=== PATIENT | female | born 1995 | race Hispanic/Latino ===

== ENCOUNTER 2018-02-22 17:49 | Emergency (ER) | payer MEDICAID, OTHER ==
[2018-02-22 18:22] VITALS: BMI 40.9
[2018-02-22 18:55] LABS: BASO % 0.2 % (0.0-2.0); EOS % 0.2 % (0.0-4.0); LYMPH # 1.7 K/uL (1.0-4.3); MEAN CELL VOLUME 88.2 fL (81.0-99.0); MEAN CORPUSCULAR HEMOGLOBIN 29.9 pg (27.0-31.0); MEAN CORPUSCULAR HGB CONC 33.9 g/dL (33.0-37.0); MEAN PLATELET VOLUME 8.5 fL (7.2-11.7); MONO # 0.5 K/uL (0.0-0.8); MONO % 4.5 % (0.0-10.0); NEUT % 80.1 % (50.0-75.0); RBC 4.01 Mil/uL (3.80-5.20); RED CELL DISTRIBUTION WIDTH 13.4 % (11.5-14.5); WHITE BLOOD COUNT 11.3 K/uL (4.8-10.8)
[2018-02-22 19:08] LABS: SQUAMOUS EPITHIAL 33 /hpf (0-5); URINE BACTERIA RARE (<OCC); URINE BILIRUBIN NEGATIVE (NEGATIVE); URINE BLOOD 2+ (NEGATIVE); URINE CLARITY Hazy (Clear); URINE COLOR Yellow (YELLOW); URINE GLUCOSE (UA) NORMAL (Normal); URINE LEUKOCYTE ESTERASE 3+ Leu/uL (Negative); URINE PROTEIN 2+ mg/dL (NEGATIVE); URINE UROBILINOGEN NORMAL mg/dL (0.2-1.0)
[2018-02-22 19:14] LABS: PROTHROMBIN TIME 10.4 SECONDS (9.7-12.2)
[2018-02-22 19:30] LABS: ALB/GLOB RATIO 1.3 (1.0-2.1); ALBUMIN 3.5 g/dL (3.5-5.0); ALT/SGPT 30 U/L (9-52); AST/SGOT 17 U/L (14-36); BLOOD UREA NITROGEN 10 mg/dL (7-17); CALCIUM 9.7 mg/dl (8.6-10.4); GFR AFRICAN-AMERICAN > 60; GFR NON-AFRICAN AMERICAN > 60; URIC ACID 3.8 mg/dL (2.2-7.5)
[2018-02-22] MEDS ORDERED: Magnesium Sulfate 4 gm/100 ml 4 GM/100 ML BAG IVPB ONE (19:55)
[2018-02-22] MEDS ORDERED: Lactated Ringer's 1,000 ML IV SCH (20:00)
--- NOTE | 2018-02-22 20:25 | OBHP ---
Datetime: 02/22/2018 19:45 IP Adm Impression: , intrauterine IP Chief Complaint Other: Sent from Clinic to evaluate for PIH IP Adm Impression Other: R/O PIH IP Admit Plan: Observation/Evaluation Admit Comment, IP Provider: 22 yo female G1 with an IUP at 36.4 weeks Sent from Clinic with c/o of VELAZQUEZ, Swelling of extremities but denied BV or EP BP's WNL . DTR's +2/4 bilaterally and +2 pitting edema of LE's PIH labs ordered with serial BP's NST started and IV Hydration also initiated Drinks little to no water and os likely dehydrated. Admittted to [facility] Pelvic Type - PN: Not Done Extremities - PN: Abnormal Abdomen - PN: Normal Back - PN: Normal Breast - PN: Normal Lungs - PN: Normal Heart - PN: Normal Thyroid - PN: Normal Neurologic - PN: Normal HEENT - PN: Normal General - PN: Normal Presentation-Admit: Vertex FHR - Baseline A Provider: 120 Membranes, Provider: Intact Contraction Comments Provider: Ocassional Comments, ACOG Physical Exam: +2 pitting edema of LE's Gestation - Est Wks by US: 36.4 EGA AdmitDate IP: 36.4 IP Chief Complaint: Maternal discomfort; Other NICHD Variability Prov Fetus A: Moderate 6-25bpm NICHD Accel Fetus A IP Provider: 10X10 FHR Category Provider Fetus A: Category I NICHD Decel Fetus A IP Provider: None Genitourinary Exam: Normal DTRs - PN: Normal
--- NOTE | 2018-02-22 20:31 | OBDCSUM ---
Datetime: 02/22/2018 19:59 Discharged to, Provider: Home Follow up at, Provider: [facility] Disch Instr Activity: Normal activity Disch Instr Diet: Regular Discharge Instructions, Provider: Routine instructions given Discharge Time: 02/22/2018 20:00 Follow up in weeks, Provider: 48 hrs Disch Referrals: None Contraception discussed, Prov: No Disch Activity Restrictions: No exercising; No lifting Discharge Comment, Provider: BP's 116/68 and all normal PIH labs essentially negative except for 2+ protein in a voided urine and + Dehydration VELAZQUEZ ressolved with IV Hydration as well as ocassioal contractions FHT's reassuring Will collect 24 hr urine as outpatient and has materials from the Clinic NST Reactive Butler much better Labor precautions as well as PreE S_S reviewed with patient and verbalized understanding Discharge home in Stable and Satisfactory condition Advised to increase po water intake and to elevte feet while sitting or sleeping. Will f/up in Clinic in 48 hrs to return urine collection. Discharge Diagnosis Prov Other: R/O PIH/PreE
[2018-02-23 00:31] VITALS: BP 118/71; PULSE 93
== END 2018-02-22 20:00 | disposition home or self-care (01) ==
LOC: C.EROB 17:49
DX: O26.893 Other specified pregnancy related conditions, third trimester (principal); Z3A.36 36 weeks gestation of pregnancy; R51 Headache; M79.89 Other specified soft tissue disorders